=== PATIENT | male | born 1985 | race Hispanic/Latino ===

== ENCOUNTER 2024-05-12 15:28 | Emergency (ER) | payer BC ==
[2024-05-12] MEDS ORDERED: KETOROLAC 30 MG/ML INJ ONE (15:56)
[2024-05-12 16:04] LABS: Absolute Basophils 0.1 K/uL (0-0.5); Absolute Eosinophils 0.2 K/uL (0-0.5); Absolute Lymphocytes (CBC) 2.7 K/uL (0.7-4.9); Absolute Monocytes 0.9 K/uL (0.1-1.3); Absolute Neutrophil 4.7 K/uL (1.8-8.0); Basophils % 0.7 % (0-1.3); Eosinophils % 2.2 % (0-4.4); Hematocrit 44.6 % (39.6-49.0); Lymphocytes % 31.1 % (15.3-44.8); MCH 28.9 pg (27.0-35.0); MCHC 33.8 g/dL (32.0-36.0); MCV 85.6 fL (80-100); MPV 7.4 fL (7.6-11.3); Monocytes % 10.8 % (3.3-12.3); Neutrophils % 55.2 % (41.7-73.7); Nucleated Red Blood Cells % 0.1 % (0-0); Platelets 244 thou/uL (152-406); RBC Red Blood Cell Count 5.21 M/uL (4.33-5.43); Red Cell Distribution Width 13.8 % (12.1-15.2)
[2024-05-12 16:21] LABS: ALT/SGPT 70 U/L (16-61); AST/SGOT 25 U/L (15-37); Albumin 3.6 g/dL (3.4-5.0); Albumin/Globulin Ratio 0.9 (1.1-1.8); Alkaline Phosphatase 93 U/L (45-117); Anion Gap 8.7 mEq/L (5.0-15.0); BUN Blood Urea Nitrogen 14 mg/dL (7-18); Bicarbonate 26 mEq/L (21-32); Bilirubin Total 0.4 mg/dL (0.2-1.0); Globulin 4.2 g/dL (2.3-3.5); Glomerular Filtration Rate 89 ml/min (=/>90); Glucose Level 84 mg/dL (74-106); NT PRO-BNP 53 pg/mL (<125); Potassium 3.7 mEq/L (3.5-5.1); Protein, Total 7.8 g/dL (6.4-8.2); Sodium Level 137 mEq/L (136-145)
[2024-05-12 16:23] LABS: Bilirubin Direct < 0.2 mg/dL (0-0.2); Bilirubin Indirect, Calculated 0.2 mg/dL (0.2-0.8); Troponin High Sensitivity < 3.0 pg/mL (<58.9)
--- NOTE | 2024-05-12 16:36 | RAD REPORT ---
EXAMINATION: ONE VIEW CHEST XR CLINICAL INDICATION: COUGH TECHNIQUE: Frontal chest projection is submitted. Examination is limited by patient positioning and t echnique. COMPARISON: 10/19/2016 FINDINGS: The lungs are well inflated and clear. The heart is normal in size. No displaced fractures identified . IMPRESSION: No acute intrathoracic abnormalities.
[2024-05-12 16:43] LABS: Influenza A Ag Negative; Influenza B Ag Negative; SARS-CoV-2 Antigen Rapid Res Negative (Negative)
--- NOTE | 2024-05-12 16:51 | EDPHYS ---
Physician Documentation [facility] Name: Sylvain Her Age: 39 yrs Sex: Male : 1985 Arrival Date: 05/12/2024 Time: 15:28 Bed 12 Private MD: ED Physician Stevan Cruz HPI: 05/12 17:16 This 39 yrs old Male presents to ER via Ambulatory with complaints of Chest rt Pain, Breathing Difficulty. 17:18 Patient presents to the ED with cough for about the past 3 days. Reports that for the rt past 5 hours, has had chest pain and mild difficulty breathing. He denies other acute complaints at this time, symptoms are moderate in severity, no other aggravating or alleviating factors.. Historical: - Allergies: 15:35 sulfamethoxazole-trimethoprim; ll1 15:35 Bactrim; ll1 15:37 winter; ll1 - PMHx: 15:35 Depression; Anxiety; GERD; ll1 - PSHx: 15:35 gastric sleeve (GERD); ll1 - Immunization history:: Adult Immunizations up to date. - Infectious Disease History:: Denies. - Social history:: Smoking status: Reported history of juuling and/or vaping. ROS: 17:18 Constitutional: Negative for fever, chills, and weight loss, Abdomen/GI: Negative for rt abdominal pain, nausea, vomiting, diarrhea, and constipation, MS/Extremity: Negative for injury and deformity, Skin: Negative for injury, rash, and discoloration, Neuro: Negative for headache, weakness, numbness, tingling, and seizure, 17:18 Cardiovascular: Positive for chest pain, Negative for edema, 17:18 Respiratory: Positive for cough, shortness of breath, Exam: 17:18 Constitutional: This is a well developed, well nourished patient who is awake, alert, rt and in no acute distress. Head/Face: Normocephalic, atraumatic. Chest/axilla: Normal chest wall appearance and motion. Nontender with no deformity. No lesions are appreciated. Cardiovascular: Regular rate and rhythm with a normal S1 and S2. No gallops, murmurs, or rubs. Normal PMI, no JVD. No pulse deficits. Respiratory: Lungs have equal breath sounds bilaterally, clear to auscultation and percussion. No rales, rhonchi or wheezes noted. No increased work of breathing, no retractions or nasal flaring. Abdomen/GI: Soft, non-tender, with normal bowel sounds. No distension or tympany. No guarding or rebound. No evidence of tenderness throughout. Skin: Warm, dry with normal turgor. Normal color with no rashes, no lesions, and no evidence of cellulitis. MS/ Extremity: Pulses equal, no cyanosis. Neurovascular intact. Full, normal range of motion. Neuro: Awake and alert, GCS 15, oriented to person, place, time, and situation. Cranial nerves II-XII grossly intact. Motor strength 5/5 in all extremities. Sensory grossly intact. Cerebellar exam normal. Normal gait. 17:18 ECG was reviewed by the Attending Physician. Vital Signs: 15:36 BP 149 / 101; Pulse 105; Resp 18; Temp 97.6; Pulse Ox 100% ; Weight 114.76 kg; Height 5 ll1 ft. 11 in. ; Pain 3/10; 16:08 BP 134 / 102; Pulse 90; Resp 17; ll1 17:03 BP 138 / 94; Pulse 87; Resp 16; Temp 97.2; Pulse Ox 98% on R/A; Pain 0/10; ll1 15:36 Body Mass Index 35.29 (114.76 kg, 180.34 cm) ll1 15:36 Pain Scale: Adult ll1 17:03 Pain Scale: Adult ll1 MDM: 15:40 Medical Screening Exam initiated rt 17:18 Differential diagnosis: Bronchitis, viral syndrome, pneumonia. HEART Score: History: rt Slightly Suspicious (0), ECG: Normal (0), Age: < or = 45 years (0), Risk Factors: No Risk Factors Known (0), Troponin: < or = 1 x Normal Limit (0), Total Score = 0. Data reviewed: vital signs, nurses notes, lab test result(s), EKG, radiologic studies. Consideration of Admission/Observation Escalation of care including admission/observation considered. Low risk for ACS, does not require admission at this time, given chronicity of symptoms, 1 set of enzymes is sufficient to rule out acute coronary syndrome. I considered the following discharge prescriptions or medication management in the emergency department Medications were administered in the Emergency Department. See MAR. Independent interpretation of the following test(s) in the Emergency Department X-Ray: My interpretation is No infiltrate seen on my interpretation of x-ray images. Test considered but Not performed: CT: Tachycardia improved without treatment, is PE RC negative, low suspicion for pulmonary embolus, CT angiogram not indicated. Counseling: I had a detailed discussion with the patient and/or guardian regarding the historical points, exam findings, and any diagnostic results supporting the discharge/admit diagnosis, lab results, radiology results, the need for outpatient follow up, to return to the emergency department if symptoms worsen or persist or if there are any questions or concerns that arise at home. Response to treatment: the patient's symptoms have mildly improved after treatment. 05/12 15:46 Order name: Basic Metabolic Panel; Complete Time: 16:37 rt 05/12 15:46 Order name: CBC with Diff; Complete Time: 16:37 rt 05/12 15:46 Order name: LFT's; Complete Time: 16:37 rt 05/12 15:46 Order name: NT PRO-BNP; Complete Time: 16:37 rt 05/12 15:46 Order name: Troponin HS; Complete Time: 16:37 rt 05/12 16:17 Order name: COVID-19 Ag + Flu A+B Ag; Complete Time: 16:44 EDMS 05/12 15:46 Order name: XRAY Chest (1 view); Complete Time: 16:37 rt 05/12 15:46 Order name: Cardiac monitoring; Complete Time: 15:49 rt 05/12 15:46 Order name: EKG - Nurse/Tech; Complete Time: 15:48 rt 05/12 15:46 Order name: IV Saline Lock; Complete Time: 15:55 rt 05/12 15:46 Order name: Labs collected and sent; Complete Time: 15:55 rt 05/12 15:46 Order name: O2 Per Protocol; Complete Time: 15:49 rt 05/12 15:46 Order name: O2 Sat Monitoring; Complete Time: 15:49 rt EC:18 Rate is 105 beats/min. Rhythm is regular, Sinus tachycardia with No ectopy. QRS [place] is rt Normal. VT interval is normal. QRS interval is normal. QT interval is normal. No Q waves. T waves are Normal. No ST changes noted. Interpreted by me. Administered Medications: 16:07 Drug: Ketorolac IVP 15 mg IVP once Route: IVP; Site: right antecubital; ll1 17:03 Follow up: Response: No adverse reaction; Pain is decreased ll1 Disposition Summary: 05/12/24 16:51 Discharge Ordered Notes: Location: Home rt Problem: new rt Symptoms: have improved rt Condition: Stable rt Diagnosis - Acute bronchitis, unspecified rt Followup: rt - With: Private Physician - When: 2 - 3 days - Reason: Discharge Instructions: - Discharge Summary Sheet rt - Acute Bronchitis, Adult rt Forms: - Work release form ll1 - Medication Reconciliation Form rt - Antibiotic Education rt - Prescription Opioid Use rt - Patient Portal Instructions rt - Leadership Thank You Letter rt Prescriptions: - albuterol sulfate 90 mcg/actuation Inhalation HFA Aerosol Inhaler - inhale 3 inhalation INHALATION route every 4 hours as needed for shortness of rt breath or wheezing;; 2 Each; Refills: 0, Product Selection Permitted - Prednisone 20 mg Oral Tablet - take 2 tablets ORAL route once daily for 5 days; 10 tablet; Refills: 0, Product rt Selection Permitted Signatures: Dispatcher [employer] EDAlvaro Stanford RN RN ll1 Stevan Cruz MD MD rt Corrections: (The following items were deleted from the chart) 15:46 15:46 BASIC METABOLIC PANEL+C.LAB.BRZ ordered. EDMS EDMS 15:46 15:46 CBC+H.LAB.BRZ ordered. EDMS EDMS 15:46 15:46 HEPATIC FUNCTION+C.LAB.BRZ ordered. EDMS EDMS 15:46 15:46 PROBNP+C.LAB.BRZ ordered. EDMS EDMS 15:46 15:46 Troponin High Sensitivity+C.LAB.BRZ ordered. EDMS EDMS 15:46 15:46 Chest Single View+RAD.RAD.BRZ ordered. EDMS EDMS 16:17 15:53 Influenza Screen (A \T\ B)+BA.LAB.BRZ ordered. EDMS EDMS 16:17 15:53 SARS-COV-2 Antigen Rapid+I.LAB.BRZ ordered. EDMS EDMS
--- NOTE | 2024-05-12 16:51 | ER ---
Nurse's Notes [facility] Name: Sylvain Her Age: 39 yrs Sex: Male : 1985 Arrival Date: 05/12/2024 Time: 15:28 Bed 12 Private MD: Diagnosis: Acute bronchitis, unspecified Presentation: 05/12 15:36 Chief complaint: Patient states: Cough for 2 days. CP and SOB for 5 hours. No fever. ll1 Coronavirus screen: Client denies travel out of the [place] in the last 14 days. cough unrelated to allergies, difficulty breathing, fatigue, shortness of breath, Client presents with at least one sign or symptom that may indicate coronavirus-19. Standard/surgical mask placed on the client. Ebola Screen: Patient denies travel to an Ebola-affected area in the 21 days before illness onset. Initial Sepsis Screen: Does the patient meet any 2 criteria? No. Patient's initial sepsis screen is negative. Does the patient have a suspected source of infection? No. Patient's initial sepsis screen is negative. Risk Assessment: Do you want to hurt yourself or someone else? Patient reports no desire to harm self or others. Onset of symptoms was May 12, 2024. 15:36 Method Of Arrival: Ambulatory ll1 15:36 Acuity: JACINTO 3 ll1 Triage Assessment: 15:37 General: Appears uncomfortable, Behavior is calm, cooperative, appropriate for age. ll1 Pain: Complains of pain in chest Quality of pain is described as aching. Cardiovascular: Reports chest pain, shortness of breath. Respiratory: Reports cough that is. Historical: - Allergies: 15:35 sulfamethoxazole-trimethoprim; ll1 15:35 Bactrim; ll1 15:37 winter; ll1 - PMHx: 15:35 Depression; Anxiety; GERD; ll1 - PSHx: 15:35 gastric sleeve (GERD); ll1 - Immunization history:: Adult Immunizations up to date. - Infectious Disease History:: Denies. - Social history:: Smoking status: Reported history of juuling and/or vaping. Screenin:09 [facility] ED Fall Risk Assessment (Adult) History of falling in the last 3 months, ll1 including since admission No falls in past 3 months (0 pts) Confusion or Disorientation No (0 pts) Intoxicated or Sedated No (0 pts) Impaired Gait No (0 pts) Mobility Assist Device Used No (0 pt) Altered Elimination No (0 pt) Score/Fall Risk Level 0 - 2 = Low Risk Maintained a safe environment, Hourly rounding (assess needs \T\ fall precautionary measures) done. Abuse screen: Denies threats or abuse. Nutritional screening: No deficits noted. Tuberculosis screening: No symptoms or risk factors identified. Assessment: 15:59 Reassessment: No changes from previously documented assessment. Patient and/or family ll1 updated on plan of care and expected duration. Pain level reassessed. Patient is alert, oriented x 3, equal unlabored respirations, skin warm/dry/pink. 16:09 Reassessment: No changes from previously documented assessment. Patient and/or family ll1 updated on plan of care and expected duration. Pain level reassessed. Patient is alert, oriented x 3, equal unlabored respirations, skin warm/dry/pink. 17:03 Reassessment: No changes from previously documented assessment. Patient and/or family ll1 updated on plan of care and expected duration. Pain level reassessed. Patient is alert, oriented x 3, equal unlabored respirations, skin warm/dry/pink. Patient states feeling better. Pain: Denies pain. 17:04 Pain: Pain does not radiate. Pain began 1 day ago. ll1 Vital Signs: 15:36 BP 149 / 101; Pulse 105; Resp 18; Temp 97.6; Pulse Ox 100% ; Weight 114.76 kg; Height 5 ll1 ft. 11 in. ; Pain 3/10; 16:08 BP 134 / 102; Pulse 90; Resp 17; ll1 17:03 BP 138 / 94; Pulse 87; Resp 16; Temp 97.2; Pulse Ox 98% on R/A; Pain 0/10; ll1 15:36 Body Mass Index 35.29 (114.76 kg, 180.34 cm) ll1 15:36 Pain Scale: Adult ll1 17:03 Pain Scale: Adult ll1 ED Course: 15:31 Patient arrived in ED. al6 15:33 Stevan Cruz MD is Attending Physician. rt 15:37 Triage completed. ll1 15:37 Arm band placed on. ll1 15:40 Provided Education on: ER procedures and process. ll1 15:41 EKG done, by ED staff, reviewed by Stevan Cruz MD. ap3 15:49 Client placed on continuous cardiac and pulse oximetry monitoring. NIBP monitoring ap3 applied. make up artist on. Pulse ox on. NIBP on. 15:50 No provider procedures requiring assistance completed. Inserted saline lock: 22 gauge ll1 in right antecubital area, using aseptic technique. Blood collected. Flushed with 10 mL NS. Patient maintains SpO2 saturation greater than 95% on room air. 15:55 Alvaro Mayen RN is Primary Nurse. ll1 16:09 Patient has correct armband on for positive identification. Call light in reach. ll1 16:30 XRAY Chest (1 view) In Process Unspecified. EDMS 17:04 IV discontinued, intact, bleeding controlled, No redness/swelling at site. Pressure ll1 dressing applied. Administered Medications: 16:07 Drug: Ketorolac IVP 15 mg IVP once Route: IVP; Site: right antecubital; ll1 17:03 Follow up: Response: No adverse reaction; Pain is decreased ll1 Medication: 16:09 VIS not applicable for this client. ll1 Outcome: 16:51 Discharge ordered by . rt 17:04 Discharged to home ambulatory, ll1 17:04 Condition: stable 17:04 Discharge instructions given to patient, Instructed on discharge instructions, follow up and referral plans. medication usage, Demonstrated understanding of instructions, follow-up care, medications, Prescriptions given X 2, 17:04 Patient left the ED. ll1 Signatures: Dispatcher [employer] EDMS Diana Payan RN RN ap3 Alvaro Mayen RN RN ll1 Stevan Cruz MD MD rt Dania Hameed6 Corrections: (The following items were deleted from the chart) 16:17 16:06 Influenza Screen (A \T\ B)+BA.LAB.BRZ drawn and sent. 1 EDMS 16:17 16:07 SARS-COV-2 Antigen Rapid+I.LAB.BRZ drawn and sent. ll1 EDMS
[2024-05-13 17:25] VITALS: TEMP 98.4
[2024-05-13 17:37] VITALS: O2SAT 96
[2024-05-13 17:42] VITALS: BP 124/63
--- NOTE | 2024-05-16 12:15 | EKG ---
Test Date: 2024-05-12 Test Time: 15:38:17 Locker Plant Attendant: ALP MEASUREMENT RESULTS: Intervals: Rate: 105 NH: 132 QRSD: 80 QT: 330 QTc: 436 Egan: P: 49 NH: 132 QRS: -1 T: 40 INTERPRETIVE STATEMENTS: Sinus tachycardia Otherwise normal ECG Compared to ECG 10/19/2016 00:50:41 Sinus rhythm no longer present Electronically Signed On 05-16-24 12:11:46 MANUSCRIPT EDITOR by Mio Walters
== END 2024-05-12 17:04 | disposition home or self-care (01) ==
LOC: ER 15:28
DX: J20.9 Acute bronchitis, unspecified (principal); Z11.52 Encounter for screening for COVID-19; F17.290 Nicotine dependence, other tobacco product, uncomplicated; Z88.1 Allergy status to other antibiotic agents; Z88.2 Allergy status to sulfonamides; Z91.02 Food additives allergy status
CPT/HCPCS: 36415; 71045; 80048; 80076; 83880; 84484; 85025; 87428; 93005; 96374; 99285